=== PATIENT | female | born 1965 | race African-American/Black ===

== ENCOUNTER 2020-09-19 22:28 | Emergency (ER) | payer SELFPAY ==
[~2020-09-19] VITALS: Ht 175.3 cm; Wt 86.0 kg
[2020-09-20] MEDS ORDERED: BACLOFEN 10MG TABLET PO ONE
[2020-09-20 00:25] LABS: BASOPHILS % 0.5 % (0.0-2.0); EOSINOPHILS % 1.5 % (0.0-5.0); HEMATOCRIT. 31.1 % (36.0-48.0); HEMOGLOBIN. 10.2 g/dL (12.0-16.0); LYMPHOCYTES % 18.6 % (20.0-50.0); MEAN CORPUSCULAR HEMOGLOBIN 29.5 pg (28.0-32.0); MEAN CORPUSCULAR VOLUME 90.1 fL (81.0-99.0); MEAN PLATELET VOLUME 8.1 fl (7.4-10.4); MONOCYTES % 5.8 % (2.0-8.0); NEUTROPHILS % 73.6 % (40.0-76.0); PLATELET 295 x1000/uL (130-400); RED BLOOD CELL COUNT 3.45 mill/uL (4.2-5.4); RED CELL DISTRIBUTION WIDTH 14.7 % (11.6-14.6)
[2020-09-20 00:31] LABS: CHLORIDE 106 mEq/L (98-107)
[2020-09-20 01:40] VITALS: BP 130/86
== END 2020-09-20 01:59 | disposition home or self-care (01) ==
LOC: ER 22:28
DX: M62.838 Other muscle spasm (principal); I12.9 Hypertensive chronic kidney disease with stage 1 through stage 4 chronic kidney disease, or unspecified chronic kidney disease; E11.22 Type 2 diabetes mellitus with diabetic chronic kidney disease; N18.9 Chronic kidney disease, unspecified
CPT/HCPCS: 36415; 80053; 83735; 85025; 93005; 99284

== ENCOUNTER 2020-09-20 17:06 | Inpatient (IN) | payer OTHER ==
[~2020-09-20] VITALS: Ht 160 cm; Wt 113.4 kg
[2020-09-20 18:44] LABS: CHLORIDE 110 mEq/L (98-107)
[2020-09-20 18:48] LABS: ETHANOL BLOOD < 10 mg/dL
[2020-09-20 18:51] LABS: CREATINE KINASE 250 IU/L (26-192)
[2020-09-20 18:54] LABS: BASOPHILS % 0.4 % (0.0-2.0); EOSINOPHILS % 1.4 % (0.0-5.0); HEMATOCRIT. 32.8 % (36.0-48.0); HEMOGLOBIN. 10.7 g/dL (12.0-16.0); LYMPHOCYTES % 13.1 % (20.0-50.0); MEAN CORPUSCULAR HEMOGLOBIN 29.3 pg (28.0-32.0); MEAN CORPUSCULAR VOLUME 89.9 fL (81.0-99.0); MEAN PLATELET VOLUME 9.4 fl (7.4-10.4); MONOCYTES % 4.4 % (2.0-8.0); NEUTROPHILS % 80.7 % (40.0-76.0); PLATELET 258 x1000/uL (130-400); RED BLOOD CELL COUNT 3.65 mill/uL (4.2-5.4); RED CELL DISTRIBUTION WIDTH 14.4 % (11.6-14.6)
[2020-09-20] MEDS ORDERED: RIFAXIMIN 550 MG TABLET PO STA (19:03)
[2020-09-20] MEDS ORDERED: SODIUM CHLORIDE 0.9% 1,000 ML IV ONE (19:15)
[2020-09-20] MEDS ORDERED: LACTULOSE 20G/30ML UDC PO ONE (19:15)
[2020-09-20] MEDS ORDERED: LABETALOL 5MG/ML SYR 20 MG/4 ML SYRINGE IV ONE (19:15)
[2020-09-20] MEDS ORDERED: NICARDIPINE 50 MG in SODIUM CHLORIDE 0.9% 230 ML IV PRN ×5 (20:15→23:30)
[2020-09-20] MEDS ORDERED: AMPICILLIN 30MG/ML SYR IV ONE (21:00)
[2020-09-20] MEDS ORDERED: ACYCLOVIR INJ 750 MG in DEXT 5% WATER 125 ML IV SCH (21:00)
[2020-09-20] MEDS ORDERED: VANCOMYCIN 1 G PREMIX 200 ML IV SCH (21:00)
[2020-09-20] MEDS ORDERED: CEFTRIAXONE 1 G PREMIX 50 ML IV ONE (21:00)
[2020-09-20] MEDS ORDERED: ACYCLOVIR INJ 750 MG in DEXT 5% WATER 100 ML IV SCH ×2 (21:12→21:30)
[2020-09-20] MEDS ORDERED: AMPICILLIN 2000MG in SODIUM CHLORIDE 0.9% 100ML IV NR (22:00)
[2020-09-20] MEDS ORDERED: DEXTROSE 50% WATER 50ML SYRINGE IV PRN (23:30)
[2020-09-20] MEDS ORDERED: ACETAMINOPHEN 650MG SUPP PR PRN ×2 (23:30)
[2020-09-20] MEDS ORDERED: ONDANSETRON HCL 4MG/2ML INJ IV PRN (23:30)
[2020-09-21] MEDS: DEXT 5%/0.45% NACL 1000ML 1,000 ML IV SCH ×2 (01:00→18:34)
[2020-09-21 05:10] LABS: BASOPHILS % 0.3 % (0.0-2.0); EOSINOPHILS % 1.1 % (0.0-5.0); HEMATOCRIT. 30.2 % (36.0-48.0); HEMOGLOBIN. 9.8 g/dL (12.0-16.0); LYMPHOCYTES % 20.2 % (20.0-50.0); MEAN CORPUSCULAR HEMOGLOBIN 29.5 pg (28.0-32.0); MEAN CORPUSCULAR VOLUME 91.4 fL (81.0-99.0); MEAN PLATELET VOLUME 7.8 fl (7.4-10.4); MONOCYTES % 6.5 % (2.0-8.0); NEUTROPHILS % 71.9 % (40.0-76.0); PLATELET 289 x1000/uL (130-400)
[2020-09-21 05:16] LABS: CLARITY URINE CLEAR (CLEAR); COLOR URINE YELLOW (YELLOW); KETONES URINE NEGATIVE (NEGATIVE); LEUKOCYTE ESTERASE URINE NEGATIVE (NEGATIVE); NITRITE URINE NEGATIVE (NEGATIVE); OCCULT BLOOD URINE TRACE (NEGATIVE); PH URINE 6.5 (4.5-8.0); PROTEIN URINE 4+ (NEGATIVE); SPECIFIC GRAVITY URINE 1.018 (1.005-1.030); UROBILINOGEN URINE 0.2 E.U./dL (0.2-1.0)
[2020-09-21 05:20] LABS: PHOSPHORUS 5.1 mg/dL (2.5-4.9)
[2020-09-21 05:25] LABS: *AMPHETAMINES SCREEN URINE NEGATIVE (NEGATIVE); *BARBITURATES SCREEN URINE NEGATIVE (NEGATIVE); *BENZODIAZEPINES SCREEN URINE NEGATIVE (NEGATIVE); *COCAINE SCREEN URINE NEGATIVE (NEGATIVE); CANNABINOID URINE SCREEN NEGATIVE (NEGATIVE); PHENCYCLIDINE URINE SCREEN NEGATIVE (NEGATIVE)
[2020-09-21 05:26] LABS: METHADONE URINE SCREEN NEGATIVE (NEGATIVE); OPIATES URINE SCREEN NEGATIVE (NEGATIVE)
[2020-09-21] MEDS ORDERED: HYDRALAZINE HCL 25MG TABLET PO SCH (06:00)
[2020-09-21] MEDS: BLOOD SUGAR DIAGNOSTIC STRIP TEST SCH ×4 (07:10→22:00)
[2020-09-21] MEDS: INSULIN LISPRO 100 UNITS/ML SUBCUT SCH ×4 (07:20→21:00)
[2020-09-21] MEDS: ISOSORBIDE MONONITRATE 60MG TABLET SR 24HR PO SCH (09:00)
[2020-09-21] MEDS ORDERED: LOSARTAN POTASSIUM 50 MG TABLET PO SCH (09:00)
[2020-09-21] MEDS: AMLODIPINE 5MG TABLET PO SCH ×2 (09:01→22:32)
[2020-09-21] MEDS: FAMOTIDINE 20MG/2ML VIAL IV SCH (09:01)
[2020-09-21] MEDS ORDERED: NICARDIPINE 40MG/200ML PREMIX 200 ML IV ONE ×2 (09:05→11:00)
[2020-09-21] MEDS ORDERED: CLONIDINE 0.2MG TABLET PO PRN (13:45)
[2020-09-21] MEDS: CLONIDINE 0.2MG TABLET PO SCH ×2 (14:11→22:33)
[2020-09-21] MEDS: HYDRALAZINE HCL 25MG TABLET PO SCH ×2 (14:12→22:32)
[2020-09-21 18:00] LABS: CREATINE KINASE 220 IU/L (26-192)
[2020-09-21 21:05] VITALS: BP 171/82
[2020-09-22] VITALS (9 sets, daily range): BP systolic 12–172; BP diastolic 52–81
[2020-09-22] MEDS ORDERED: COPAJ SUBCUT (04:27)
[2020-09-22] MEDS: BLOOD SUGAR DIAGNOSTIC STRIP TEST SCH ×4 (06:14→20:01)
[2020-09-22] MEDS: HYDRALAZINE HCL 25MG TABLET PO SCH ×3 (06:20→21:21)
[2020-09-22] MEDS: CLONIDINE 0.2MG TABLET PO SCH ×3 (06:20→21:21)
[2020-09-22] MEDS: DEXT 5%/0.45% NACL 1000ML 1,000 ML IV SCH (06:21)
[2020-09-22 06:26] LABS: BASOPHILS % 0.4 % (0.0-2.0); EOSINOPHILS % 2.4 % (0.0-5.0); HEMOGLOBIN. 8.5 g/dL (12.0-16.0); LYMPHOCYTES % 19.6 % (20.0-50.0); MEAN CORPUSCULAR HEMOGLOBIN 29.1 pg (28.0-32.0); MEAN CORPUSCULAR VOLUME 89.1 fL (81.0-99.0); MEAN PLATELET VOLUME 9.5 fl (7.4-10.4); MONOCYTES % 6.4 % (2.0-8.0); NEUTROPHILS % 71.2 % (40.0-76.0); PLATELET 224 x1000/uL (130-400); RED BLOOD CELL COUNT 2.92 mill/uL (4.2-5.4); RED CELL DISTRIBUTION WIDTH 14.6 % (11.6-14.6)
[2020-09-22] MEDS: INSULIN LISPRO 100 UNITS/ML SUBCUT SCH ×4 (06:34→21:25)
[2020-09-22 06:41] LABS: PHOSPHORUS 4.7 mg/dL (2.5-4.9)
[2020-09-22] MEDS: FAMOTIDINE 20MG/2ML VIAL IV SCH (09:01)
[2020-09-22] MEDS: ISOSORBIDE MONONITRATE 60MG TABLET SR 24HR PO SCH (09:02)
[2020-09-22] MEDS: AMLODIPINE 5MG TABLET PO SCH ×2 (09:05→21:21)
[2020-09-23] VITALS: BP 120/51
[2020-09-23 04:00] VITALS: BP 151/52
[2020-09-23] MEDS: CLONIDINE 0.2MG TABLET PO SCH (05:34)
[2020-09-23] MEDS: HYDRALAZINE HCL 25MG TABLET PO SCH (05:34)
[2020-09-23] MEDS: BLOOD SUGAR DIAGNOSTIC STRIP TEST SCH (06:12)
[2020-09-23] MEDS: INSULIN LISPRO 100 UNITS/ML SUBCUT SCH (06:30)
[2020-09-23 06:58] LABS: BASOPHILS % 0.5 % (0.0-2.0); EOSINOPHILS % 2.3 % (0.0-5.0); HEMATOCRIT. 23.9 % (36.0-48.0); HEMOGLOBIN. 7.9 g/dL (12.0-16.0); LYMPHOCYTES % 14.9 % (20.0-50.0); MEAN CORPUSCULAR HEMOGLOBIN 29.5 pg (28.0-32.0); MEAN CORPUSCULAR VOLUME 89.1 fL (81.0-99.0); MEAN PLATELET VOLUME 9.5 fl (7.4-10.4); MONOCYTES % 5.6 % (2.0-8.0); NEUTROPHILS % 76.7 % (40.0-76.0); PLATELET 197 x1000/uL (130-400); RED BLOOD CELL COUNT 2.69 mill/uL (4.2-5.4); RED CELL DISTRIBUTION WIDTH 14.4 % (11.6-14.6)
[2020-09-23 07:21] LABS: PHOSPHORUS 4.1 mg/dL (2.5-4.9)
== END 2020-09-23 07:35 | disposition home or self-care (01) | DRG 77 ==
LOC: ER 17:06 → MICUSO 20:40 → EDBEDREQSVC 09-21 06:26 → 8WST 09-21 20:12
PROVIDERS: ADMIT Internal Medicine; ATTEND Internal Medicine
DX: I67.4 Hypertensive encephalopathy (principal); E43 Unspecified severe protein-calorie malnutrition; I12.0 Hypertensive chronic kidney disease with stage 5 chronic kidney disease or end stage renal disease; E87.0 Hyperosmolality and hypernatremia; N18.5 Chronic kidney disease, stage 5; Z68.41 Body mass index [BMI] 40.0-44.9, adult; I16.1 Hypertensive emergency; I16.0 Hypertensive urgency; G35 Multiple sclerosis; E11.22 Type 2 diabetes mellitus with diabetic chronic kidney disease; R55 Syncope and collapse; D63.8 Anemia in other chronic diseases classified elsewhere; J45.909 Unspecified asthma, uncomplicated; Z82.49 Family history of ischemic heart disease and other diseases of the circulatory system; Z83.3 Family history of diabetes mellitus; Z79.899 Other long term (current) drug therapy
CPT/HCPCS: 36415; 71045; 76770; 80048; 80053; 80305; 80320; 81003; 82140; 82550; 82962; 83036; 83605; 83735; 84100; 84443; 85025; 86850; 86900; 93005; 99285; J0133; J0290; J0696; J1815; J3370; J3490; J7030; J7050; J7060; G0480